=== PATIENT | male | born 1945 | race Caucasian/White ===

== ENCOUNTER 2017-03-12 05:42 | Emergency (ER) | payer OTHER ==
[~2017-03-12] VITALS: Ht 188 cm; Wt 92.4 kg
[2017-03-12 06:26] LABS: HEMATOCRIT 39.8 % (38.0-50.0); MCH 32.1 PG (29.0-34.0); MCHC 33.7 G/DL (30.0-36.0); MCV 95.2 FL (86-99); MEAN PLAT.VOLUME 9.5 uM^3 (9.0-12.4); PLATELET COUNT 181 K/uL (156-360); RBC DIS.WIDTH-CV 11.9 % (11.8-14.6); RBC DIS.WIDTH-SD 41.5 % (39-53); RED BLOOD COUNT 4.18 M/uL (4.00-5.50); WHITE BLOOD COUNT 5.9 K/uL (4.1-10.2)
[2017-03-12] MEDS ORDERED: ASPIR 8181 M1 PO (06:35)
[2017-03-12] MEDS ORDERED: BUSPAR7.5 MG PO (06:35)
[2017-03-12] MEDS ORDERED: QUESTRAN PACKET4 GM PO ×2 (06:36→06:48)
[2017-03-12] MEDS ORDERED: CARAFATE100 MG/ML PO (06:36)
[2017-03-12] MEDS ORDERED: CALMOSEPTINE O3.5 GM TP (06:36)
[2017-03-12] MEDS ORDERED: DONEPEZIL HCL10 MG PO (06:36)
[2017-03-12] MEDS ORDERED: LEXAPRO20 MG PO (06:37)
[2017-03-12 06:38] LABS: CHLORIDE 106 mEq/L (99-109); POTASSIUM 3.4 mEq/L (3.7-5.4); SODIUM 140 mEq/L (136-147)
[2017-03-12] MEDS ORDERED: MELATIN3 MG PO (06:38)
[2017-03-12] MEDS ORDERED: PROSCAR5 MG PO (06:38)
[2017-03-12] MEDS ORDERED: MOBIC7.5 MG PO (06:38)
[2017-03-12] MEDS ORDERED: MYRBETRIQ50 MG PO (06:39)
[2017-03-12] MEDS ORDERED: NAMENDA XR28 MG PO (06:39)
[2017-03-12] MEDS ORDERED: METOPROLOL SUC100 MG PO (06:39)
[2017-03-12 06:40] LABS: GLUCOSE 107 mg/dL (70-99)
[2017-03-12] MEDS ORDERED: PROTONIX40 MG PO (06:40)
[2017-03-12] MEDS ORDERED: SEROQUEL100 MG PO (06:40)
[2017-03-12] MEDS ORDERED: NYSTATIN100000 UN1 PO (06:40)
[2017-03-12 06:41] LABS: ANION GAP 9 MEQ/L (2-14)
[2017-03-12] MEDS ORDERED: DESYREL100 MG PO (06:41)
[2017-03-12] MEDS ORDERED: DIOVAN HCT 31 TABLE1 PO (06:41)
[2017-03-12] MEDS ORDERED: TRAZODONE HCL50 MG PO (06:41)
[2017-03-12] MEDS ORDERED: TAMSULOSIN HCL0.4 MG PO (06:41)
[2017-03-12 06:42] LABS: TOTAL BILIRUBIN 0.4 mg/dL (0.0-1.0)
[2017-03-12 06:44] LABS: ALKALINE PHOSPHATASE 51 IU/L (3-129); GFR ESTIMATE (CALCULATED) > 59 mL/min/
[2017-03-12 06:45] LABS: UREA NITROGEN (BUN) 14 mg/dL (9-23)
[2017-03-12] MEDS ORDERED: VITAMIN D22000 UNIT PO (06:46)
[2017-03-12 07:32] LABS: ADD MIUA? NO; BILIRUBIN NEGATIVE; BLOOD NEGATIVE; COLOR YELLOW ((YELLOW)); GLUCOSE (STRIP) NEGATIVE; KETONES NEGATIVE; LEUKOCYTES NEGATIVE; NITRITE NEGATIVE; PROTEIN (STRIP) NEGATIVE; SPECIFIC GRAVITY 1.009 (1.000-1.030); UCUL ADDED? NO; UROBILINOGEN 0.2 MG/DL (0.2-1.0)
[2017-03-12 09:08] VITALS: BP 141/95
== END 2017-03-12 09:09 | disposition home or self-care (01) ==
LOC: EME 05:42
PROVIDERS: Emergency Medicine
DX: F03.90 Unspecified dementia, unspecified severity, without behavioral disturbance, psychotic disturbance, mood disturbance, and anxiety (principal); I10 Essential (primary) hypertension; Z86.73 Personal history of transient ischemic attack (TIA), and cerebral infarction without residual deficits; Z87.891 Personal history of nicotine dependence
CPT/HCPCS: 80053; 81003; 85027; 99281; 99284